=== PATIENT | male | born 1985 | race Caucasian/White ===

== ENCOUNTER 2016-12-28 20:55 | Emergency (ER) | payer OTHER ==
[~2016-12-28] VITALS: Ht 190.5 cm; Wt 132.2 kg
[~2016-12-28 20:55] MED LIST changes: -PERCOCET 10/1 TABLET PO; -XARELTO15 MG PO
[2016-12-28 22:28] LABS: HEMATOCRIT 42.9 % (38.0-50.0); MCH 27.3 PG (29.0-34.0); MCHC 34.5 G/DL (30.0-36.0); MEAN PLAT.VOLUME 10.2 uM^3 (9.0-12.4); PLATELET COUNT 139 K/uL (156-360); RBC DIS.WIDTH-CV 15.3 % (11.8-14.6); RBC DIS.WIDTH-SD 43.3 % (39-53); RED BLOOD COUNT 5.43 M/uL (4.00-5.50); WHITE BLOOD COUNT 9.1 K/uL (4.1-10.2)
[2016-12-28 22:39] LABS: PROTHROMBIN TIME 10.4 (9.2-11.2); PTT 28.1 (25-32)
[2016-12-28 22:41] LABS: CHLORIDE 103 mEq/L (99-109); POTASSIUM 3.7 mEq/L (3.7-5.4); SODIUM 139 mEq/L (136-147)
[2016-12-28 22:44] LABS: ANION GAP 12 MEQ/L (2-14)
[2016-12-28 22:46] LABS: GFR ESTIMATE (CALCULATED) > 59 mL/min/
[2016-12-28 22:47] LABS: UREA NITROGEN (BUN) 8 mg/dL (9-23)
[2016-12-28 22:48] LABS: GLUCOSE 404 mg/dL (70-99)
[2016-12-28] MEDS ORDERED: XARELTO15 MG PO (23:18)
[2016-12-28] MEDS ORDERED: PERCOCET 5/31 TABLET PO (23:18)
[2016-12-28 23:43] VITALS: BP 122/85
== END 2016-12-28 23:46 | disposition home or self-care (01) ==
LOC: EME 20:55
PROVIDERS: Emergency Medicine
DX: I82.402 Acute embolism and thrombosis of unspecified deep veins of left lower extremity (principal); E11.9 Type 2 diabetes mellitus without complications; F17.200 Nicotine dependence, unspecified, uncomplicated; Z79.84 Long term (current) use of oral hypoglycemic drugs
CPT/HCPCS: 80048; 85027; 85610; 85730; 93005; 99281; 99285

== ENCOUNTER → 2016-12-28 | Outpatient (CLI) | payer OTHER ==
[~2016-12-28] MED LIST: ACETAMINOPHEN-1 EAC1 PO; FLEXERIL10 MG PO; FLEXERIL5 MG PO; IMODIUM A-1 MG/7.5 M PO; JANUMET XR 1001 EACH PO; LYRICA150 MG PO; METFORMIN HCL1000 MG PO; MOBIC7.5 MG PO; MOTRIN800 MG PO; NAPROSYN500 MG PO; PERCOCET 10/1 TABLET PO; PERCOCET 5/31 TABLET PO; TRULICITY0.75 MG/0. SC; XARELTO15 MG PO; ZOFRAN4 MG PO
== END | disposition home or self-care (01) ==
LOC: RAD 19:45
DX: I82.412 Acute embolism and thrombosis of left femoral vein (principal); I82.432 Acute embolism and thrombosis of left popliteal vein; I82.442 Acute embolism and thrombosis of left tibial vein; I82.4Y2 Acute embolism and thrombosis of unspecified deep veins of left proximal lower extremity
CPT/HCPCS: 93971

== ENCOUNTER 2017-01-01 20:43 | Emergency (ER) | payer OTHER ==
[~2017-01-01] VITALS: Ht 190.5 cm; Wt 128.1 kg
[~2017-01-01 20:43] MED LIST changes: +XARELTO15 MG PO
[2017-01-01 23:58] LABS: POINT-OF-CARE METER ID UU13113800
[2017-01-02] MEDS ORDERED: PERCOCET 10/1 TABLET PO (01:16)
[2017-01-02 01:32] VITALS: BP 111/57
== END 2017-01-02 01:37 | disposition home or self-care (01) ==
LOC: EME 20:43 → RME 20:43
PROVIDERS: Physician Assistant Medical
DX: I82.412 Acute embolism and thrombosis of left femoral vein (principal); Z98.890 Other specified postprocedural states; E11.9 Type 2 diabetes mellitus without complications; Z79.84 Long term (current) use of oral hypoglycemic drugs; F17.200 Nicotine dependence, unspecified, uncomplicated
CPT/HCPCS: 82948; 93971; 99281; 99284

== ENCOUNTER 2017-01-08 04:10 | Inpatient (IN) | payer OTHER ==
[~2017-01-08] VITALS: Ht 190.5 cm; Wt 128.2 kg
[~2017-01-08 04:10] MED LIST changes: +PERCOCET 10/1 TABLET PO
[2017-01-08 05:32] LABS: CHLORIDE 108 mEq/L (99-109); POTASSIUM 3.7 mEq/L (3.7-5.4); SODIUM 141 mEq/L (136-147)
[2017-01-08 05:34] LABS: GLUCOSE 154 mg/dL (70-99)
[2017-01-08 05:35] LABS: ANION GAP 12 MEQ/L (2-14)
[2017-01-08 05:38] LABS: GFR ESTIMATE (CALCULATED) > 59 mL/min/
[2017-01-08 05:39] LABS: UREA NITROGEN (BUN) 12 mg/dL (9-23)
[2017-01-08 05:44] LABS: HEMATOCRIT 41.8 % (38.0-50.0); MCH 26.6 PG (29.0-34.0); MCV 78.4 FL (86-99); MEAN PLAT.VOLUME 9.9 uM^3 (9.0-12.4); RBC DIS.WIDTH-CV 14.6 % (11.8-14.6); RBC DIS.WIDTH-SD 41.3 % (39-53); RED BLOOD COUNT 5.33 M/uL (4.00-5.50); WHITE BLOOD COUNT 9.4 K/uL (4.1-10.2)
[2017-01-08 05:45] LABS: PLATELET COUNT 222 K/uL (156-360)
[2017-01-08 06:17] LABS: INTER. NORMALIZED RATIO 1.4; PROTHROMBIN TIME 15.8 SEC (10.2-12.9)
[2017-01-08 06:23] LABS: PTT 43.1 SEC (25-37)
[2017-01-08 11:11] LABS: POINT-OF-CARE METER ID UU14100415
[2017-01-08 15:01] VITALS: BP 121/66
[2017-01-08 16:54] LABS: POINT-OF-CARE METER ID UU14188625
[2017-01-08 19:42] VITALS: BP 124/58
[2017-01-08 21:39] LABS: INTERNAL CONTROL VALID? YES
[2017-01-08 21:42] LABS: POINT-OF-CARE METER ID UU13113717
[2017-01-08 23:39] VITALS: BP 134/63
[2017-01-09 04:04] VITALS: BP 127/57
[2017-01-09 04:15] LABS: HEMATOCRIT 39.7 % (38.0-50.0); MCH 26.4 PG (29.0-34.0); MCHC 33.5 G/DL (30.0-36.0); MCV 78.8 FL (86-99); MEAN PLAT.VOLUME 9.8 uM^3 (9.0-12.4); PLATELET COUNT 192 K/uL (156-360); RBC DIS.WIDTH-CV 14.4 % (11.8-14.6); RBC DIS.WIDTH-SD 41.1 % (39-53); RED BLOOD COUNT 5.04 M/uL (4.00-5.50); WHITE BLOOD COUNT 5.5 K/uL (4.1-10.2)
[2017-01-09 07:12] VITALS: BP 117/60
[2017-01-09 07:29] LABS: POINT-OF-CARE METER ID UU14188625
[2017-01-09 11:14] VITALS: BP 128/65
[2017-01-09 15:07] VITALS: BP 115/64
[2017-01-09] MEDS ORDERED: LOVENOX150 MG/1 M SC (15:50)
[2017-01-09] MEDS ORDERED: PERCOCET 5/31 TABLET PO ×2 (15:50→15:53)
[2017-01-09] MEDS ORDERED: NICOTINE PATCH1 EAC2 TD (15:52)
[2017-01-09] MEDS ORDERED: TYLENOL REGULA325 MG PO (15:52)
[2017-01-09 16:43] LABS: POINT-OF-CARE METER ID UU14188625
[2017-01-09 22:04] LABS: ADD dRVVT REFLEX? Y; DRVVT Mixing Study Interp Not Indicated (()); dRVVT Screen 49 sec (<=45)
[2017-01-09 22:16] LABS: LUPA PHOSPHOLIPID NEUTRALIZ Negative (Negative)
[2017-01-09 22:34] LABS: ADD PTT REFLEX? Y; PTT-LA >200 sec (<=40)
[2017-01-10 15:57] LABS: Protein S, Free 103 % normal (57-171)
[2017-01-11 15:02] LABS: ANTITHROMBIN III ACTIVITY+ 98 % activi (80-120); DRVVT Mixing Study Interp Not Indicated (()); PROTEIN C FUNCTIONAL ACTIVITY+ 168 % (70-180); Thrombosis Consult Level Limited (()); dRVVT Screen 49 sec (<=45)
[2017-01-14 08:24] LABS: THROMBIN TIME+ >100 sec (13-19)
== END 2017-01-09 17:10 | disposition home or self-care (01) | DRG 301 ==
LOC: EME 04:10 → EDOF 07:57 → 5SOUTH 07:57 → ENRESERV 08:06 → 5SOUTH 14:52
PROVIDERS: Emergency Medicine; Internal Medicine
DX: I82.412 Acute embolism and thrombosis of left femoral vein (principal); G62.9 Polyneuropathy, unspecified; E11.9 Type 2 diabetes mellitus without complications; F17.210 Nicotine dependence, cigarettes, uncomplicated; I87.2 Venous insufficiency (chronic) (peripheral); K59.00 Constipation, unspecified; Z68.35 Body mass index [BMI] 35.0-35.9, adult; Z79.01 Long term (current) use of anticoagulants; Z79.84 Long term (current) use of oral hypoglycemic drugs; E66.9 Obesity, unspecified; M54.5 Low back pain; R16.1 Splenomegaly, not elsewhere classified; R26.2 Difficulty in walking, not elsewhere classified; R61 Generalized hyperhidrosis; R63.4 Abnormal weight loss
CPT/HCPCS: 74177; 80048; 81240 90; 81241 90; 82272; 82948; 83090 90; 85027; 85240 90; 85300 90; 85303 90; 85305 90; 85306 90; 85307 90; 85384; 85597 90; 85610; 85613 90; 85670 90; 85730; 85730 90; 86038; 86140; 86146 90; 86147 90; 93971; 99281; 99285; J1650; J1815; J7030

== ENCOUNTER 2017-01-17 16:11 | Emergency (ER) | payer OTHER ==
[~2017-01-17] VITALS: Ht 190.5 cm; Wt 132.2 kg
[~2017-01-17 16:11] MED LIST changes: +LOVENOX150 MG/1 M SC; +NICOTINE PATCH1 EAC2 TD; +TYLENOL REGULA325 MG PO
[2017-01-17] MEDS ORDERED: PERCOCET 10/1 TABLET PO (17:57)
[2017-01-17 18:15] VITALS: BP 128/85
[2017-01-17] MEDS ORDERED: FLEXERIL10 MG PO (18:22)
== END 2017-01-17 18:33 | disposition home or self-care (01) ==
LOC: EME 16:11 → RME 16:11
DX: I82.512 Chronic embolism and thrombosis of left femoral vein (principal); I87.2 Venous insufficiency (chronic) (peripheral); G62.9 Polyneuropathy, unspecified; F17.200 Nicotine dependence, unspecified, uncomplicated; Z79.01 Long term (current) use of anticoagulants; Z91.19 Patient's noncompliance with other medical treatment and regimen
CPT/HCPCS: 99281; 99283

== ENCOUNTER 2017-01-21 12:55 | Inpatient (IN) | payer OTHER ==
[~2017-01-21] VITALS: Ht 190.5 cm; Wt 134.8 kg
[2017-01-21 13:57] LABS: HEMATOCRIT 46.3 % (38.0-50.0); MCH 26.2 PG (29.0-34.0); MCHC 32.8 G/DL (30.0-36.0); MCV 79.7 FL (86-99); MEAN PLAT.VOLUME 9.8 uM^3 (9.0-12.4); PLATELET COUNT 188 K/uL (156-360); RBC DIS.WIDTH-SD 42.9 % (39-53); RED BLOOD COUNT 5.81 M/uL (4.00-5.50); WHITE BLOOD COUNT 7.2 K/uL (4.1-10.2)
[2017-01-21 14:05] LABS: CHLORIDE 107 mEq/L (99-109); POTASSIUM 4.2 mEq/L (3.7-5.4); SODIUM 141 mEq/L (136-147)
[2017-01-21 14:06] LABS: GLUCOSE 128 mg/dL (70-99)
[2017-01-21 14:10] LABS: GFR ESTIMATE (CALCULATED) > 59 mL/min/
[2017-01-21 14:17] LABS: TROP-I INTERPRETATION NEGATIVE; TROPONIN-I < 0.01 ng/mL (0.0-0.30)
[2017-01-21 14:19] LABS: PROTHROMBIN TIME 10.8 SEC (10.2-12.9)
[2017-01-21 15:38] LABS: UREA NITROGEN (BUN) 11 mg/dL (9-23)
[2017-01-21 15:39] LABS: ANION GAP 9 MEQ/L (2-14)
[2017-01-21 17:10] LABS: PTT 47.4 SEC (25-37)
[2017-01-21] MEDS ORDERED: ENOXAPARIN120 MG/0.8 SC (18:12)
[2017-01-21 21:20] VITALS: BP 115/54
[2017-01-21 21:58] VITALS: BP 115/54
[2017-01-21 23:09] VITALS: BP 139/65
[2017-01-22] VITALS (8 sets, daily range): BP systolic 99–134; BP diastolic 57–73
[2017-01-22 08:47] LABS: HEMATOCRIT 40.4 % (38.0-50.0); MCHC 33.7 G/DL (30.0-36.0); MCV 80.2 FL (86-99); MEAN PLAT.VOLUME 10.1 uM^3 (9.0-12.4); PLATELET COUNT 135 K/uL (156-360); RBC DIS.WIDTH-CV 14.9 % (11.8-14.6); RED BLOOD COUNT 5.04 M/uL (4.00-5.50); WHITE BLOOD COUNT 5.4 K/uL (4.1-10.2)
[2017-01-22 09:31] LABS: ALKALINE PHOSPHATASE 46 IU/L (3-129); ANION GAP 7 MEQ/L (2-14); CHLORIDE 108 MEQ/L (99-109); GFR ESTIMATE (CALCULATED) > 59 mL/min/; POTASSIUM 3.7 MEQ/L (3.7-5.4); SAMPLE HEMOLYSIS CHECK 0; SAMPLE ICTERIC CHECK 0; SAMPLE LIPEMIA CHECK 0; SODIUM 143 MEQ/L (136-147); UREA NITROGEN (BUN) 9 mg/dL (9-23)
[2017-01-22 09:33] LABS: GLUCOSE 211 mg/dL (70-99); TOTAL BILIRUBIN 0.7 MG/DL (0.0-1.0)
[2017-01-23 03:47] VITALS: BP 113/57
[2017-01-23 04:27] LABS: HEMATOCRIT 38.9 % (38.0-50.0); MCH 26.4 PG (29.0-34.0); MCHC 33.2 G/DL (30.0-36.0); MCV 79.6 FL (86-99); MEAN PLAT.VOLUME 10.2 uM^3 (9.0-12.4); PLATELET COUNT 144 K/uL (156-360); RBC DIS.WIDTH-CV 14.8 % (11.8-14.6); RBC DIS.WIDTH-SD 42.5 % (39-53); RED BLOOD COUNT 4.89 M/uL (4.00-5.50); WHITE BLOOD COUNT 6.7 K/uL (4.1-10.2)
[2017-01-23 04:35] LABS: PTT 57.2 SEC (25-37)
[2017-01-23 07:37] VITALS: BP 115/63
[2017-01-23 08:47] LABS: PROTHROMBIN TIME 10.7 SEC (10.2-12.9)
[2017-01-23 12:50] VITALS: BP 120/58
[2017-01-23] MEDS ORDERED: COUMADIN5 MG PO (13:48)
[2017-01-23] MEDS ORDERED: OXYCODONE HCL5 MG PO (13:48)
[2017-01-23] MEDS ORDERED: LOVENOX150 MG/1 M SC (13:48)
== END 2017-01-23 15:00 | disposition home or self-care (01) | DRG 299 ==
LOC: RME 12:55 → EME 12:55 → EDOF 18:07 → 3EAST 18:07 → ENRESERV 18:09 → 3EAST 20:56
PROVIDERS: Hospitalist; Internal Medicine
DX: I82.412 Acute embolism and thrombosis of left femoral vein (principal); I26.99 Other pulmonary embolism without acute cor pulmonale; R16.1 Splenomegaly, not elsewhere classified; D68.61 Antiphospholipid syndrome; D68.62 Lupus anticoagulant syndrome; E11.9 Type 2 diabetes mellitus without complications; E66.9 Obesity, unspecified; I87.2 Venous insufficiency (chronic) (peripheral); Z79.01 Long term (current) use of anticoagulants; Z83.3 Family history of diabetes mellitus; F17.210 Nicotine dependence, cigarettes, uncomplicated; M25.512 Pain in left shoulder; R07.9 Chest pain, unspecified; R63.4 Abnormal weight loss; Z86.711 Personal history of pulmonary embolism; Z86.718 Personal history of other venous thrombosis and embolism
CPT/HCPCS: 71020; 71275; 80048; 80053; 84484; 85027; 85610; 85730; 93005; 93971; 99202; 99281; 99285; J1650; J2270; J7030

== ENCOUNTER 2017-01-28 15:18 | Emergency (ER) | payer OTHER ==
[~2017-01-28] VITALS: Ht 190.5 cm; Wt 136.2 kg
[~2017-01-28 15:18] MED LIST changes: +COUMADIN5 MG PO; +ENOXAPARIN120 MG/0.8 SC; +OXYCODONE HCL5 MG PO
[2017-01-28 17:02] LABS: ADD MIUA? YES; BILIRUBIN NEGATIVE; BLOOD NEGATIVE; COLOR YELLOW ((YELLOW)); GLUCOSE (STRIP) >=500; KETONES NEGATIVE; LEUKOCYTES NEGATIVE; NITRITE NEGATIVE; PROTEIN (STRIP) 30; SPECIFIC GRAVITY 1.024 (1.000-1.030); UROBILINOGEN 0.2 MG/DL (0.2-1.0)
[2017-01-28 17:08] LABS: BACTERIA RARE /HPF; EPITHELIAL CELLS RARE /HPF; MUCUS 1+ /LPF; RED BLOOD CELLS 0-5 /HPF (0-5); WHITE BLOOD CELLS 0-5 /HPF (0-5)
[2017-01-28] MEDS ORDERED: PERCOCET 5/31 TABLET PO (19:21)
[2017-01-28 20:15] VITALS: BP 131/82
== END 2017-01-28 20:17 | disposition home or self-care (01) ==
LOC: EME 15:18
PROVIDERS: Physician Assistant
DX: M54.6 Pain in thoracic spine (principal); I82.402 Acute embolism and thrombosis of unspecified deep veins of left lower extremity; E11.40 Type 2 diabetes mellitus with diabetic neuropathy, unspecified; Z86.718 Personal history of other venous thrombosis and embolism; Z86.711 Personal history of pulmonary embolism; Z87.891 Personal history of nicotine dependence
CPT/HCPCS: 81003; 93971; 99281; 99285

== ENCOUNTER 2017-02-16 17:40 | Emergency (ER) | payer OTHER ==
[~2017-02-16] VITALS: Ht 190.5 cm; Wt 139.2 kg
[2017-02-16 18:58] LABS: HEMATOCRIT 46.1 % (38.0-50.0); MCH 25.9 PG (29.0-34.0); MCV 78.4 FL (86-99); MEAN PLAT.VOLUME 9.6 uM^3 (9.0-12.4); PLATELET COUNT 179 K/uL (156-360); RBC DIS.WIDTH-CV 15.4 % (11.8-14.6); RBC DIS.WIDTH-SD 42.9 % (39-53); RED BLOOD COUNT 5.88 M/uL (4.00-5.50); WHITE BLOOD COUNT 9.6 K/uL (4.1-10.2)
[2017-02-16 19:00] LABS: INTER. NORMALIZED RATIO 3.2; PROTHROMBIN TIME 36.6 SEC (10.2-12.9)
[2017-02-16 19:03] LABS: CHLORIDE 103 mEq/L (99-109); POTASSIUM 4.2 mEq/L (3.7-5.4); SODIUM 140 mEq/L (136-147)
[2017-02-16 19:05] LABS: GLUCOSE 234 mg/dL (70-99)
[2017-02-16 19:06] LABS: ANION GAP 12 MEQ/L (2-14)
[2017-02-16 19:08] LABS: GFR ESTIMATE (CALCULATED) > 59 mL/min/
[2017-02-16 19:09] LABS: UREA NITROGEN (BUN) 14 mg/dL (9-23)
[2017-02-16 19:11] LABS: CREATINE KINASE 84 IU/L (1-294)
[2017-02-16 20:18] VITALS: BP 119/71
== END 2017-02-16 20:19 | disposition home or self-care (01) ==
LOC: EME 17:40
PROVIDERS: Physician Assistant
DX: I80.02 Phlebitis and thrombophlebitis of superficial vessels of left lower extremity (principal); R73.9 Hyperglycemia, unspecified; I87.2 Venous insufficiency (chronic) (peripheral); S86.912A Strain of unspecified muscle(s) and tendon(s) at lower leg level, left leg, initial encounter; S86.911A Strain of unspecified muscle(s) and tendon(s) at lower leg level, right leg, initial encounter; R60.0 Localized edema; Z86.718 Personal history of other venous thrombosis and embolism; Z91.19 Patient's noncompliance with other medical treatment and regimen; Z79.01 Long term (current) use of anticoagulants; X58.XXXA Exposure to other specified factors, initial encounter; Z87.891 Personal history of nicotine dependence; Z88.6 Allergy status to analgesic agent
CPT/HCPCS: 80048; 82550; 85027; 85610; 93970; 99281; 99284

== ENCOUNTER → 2017-03-07 | Outpatient (CLI) | payer OTHER ==
[~2017-03-07] VITALS: Ht 191.8 cm; Wt 138.3 kg
[~2017-03-07] MED LIST changes: +GLIPIZIDE5 MG PO; +LOVENOX100 MG/1 M SC; +METFORMIN HCL500 M4 PO; +PROTONIX40 MG PO
[2017-03-07 08:19] LABS: POINT-OF-CARE METER ID UU14174212
[2017-03-07 08:26] LABS: BASOPHIL COUNT 0.1 K/uL (0-0.1); EOSINOPHIL COUNT 0.2 K/uL (0-0.3); HEMATOCRIT 46.2 % (38.0-50.0); IMMATURE GRANULOCYTE (%) 0.3 % (0.0-0.7); INSTRUMENT ABS NEUTROPHIL CT 3.6 K/uL; LYMPHOCYTE COUNT 2.2 K/uL (1.0-2.8); MCH 26.6 PG (29.0-34.0); MCV 78.3 FL (86-99); MEAN PLAT.VOLUME 9.6 uM^3 (9.0-12.4); MONOCYTE (%) 7.7 % (3-12); MONOCYTE COUNT 0.5 K/uL (0-0.8); NEUTROPHIL (%) 54.4 % (45-76); NEUTROPHIL COUNT 3.6 K/uL (1.8-6.4); PLATELET COUNT 132 K/uL (156-360); RBC DIS.WIDTH-CV 15.5 % (11.8-14.6); WHITE BLOOD COUNT 6.6 K/uL (4.1-10.2)
[2017-03-07 08:42] LABS: PROTHROMBIN TIME 10.8 SEC (10.2-12.9)
[2017-03-07 08:45] LABS: PTT 31.4 SEC (25-37)
[2017-03-07 08:49] LABS: POINT-OF-CARE METER ID UU14174212
[2017-03-09 18:19] LABS: NUMBER OF MARKERS 22; SPECIMEN VIABILITY 98
== END | disposition home or self-care (01) ==
LOC: OPR 07:35 → EDSTATUS 08:00 → OPR 08:00
PROVIDERS: Internal Medicine Medical Oncology
PROC: 07DR3ZX Extraction of Iliac Bone Marrow, Percutaneous Approach, Diagnostic (ICD-10-PCS; principal; 2017-03-07)
PROC: 079T3ZX Drainage of Bone Marrow, Percutaneous Approach, Diagnostic (ICD-10-PCS; principal; 2017-03-07)
DX: R16.1 Splenomegaly, not elsewhere classified (principal); I82.412 Acute embolism and thrombosis of left femoral vein; F11.10 Opioid abuse, uncomplicated; E11.65 Type 2 diabetes mellitus with hyperglycemia; E11.44 Type 2 diabetes mellitus with diabetic amyotrophy; J45.40 Moderate persistent asthma, uncomplicated; K21.9 Gastro-esophageal reflux disease without esophagitis; E78.5 Hyperlipidemia, unspecified; D69.6 Thrombocytopenia, unspecified; F17.200 Nicotine dependence, unspecified, uncomplicated; G89.29 Other chronic pain; Z80.1 Family history of malignant neoplasm of trachea, bronchus and lung; Z80.3 Family history of malignant neoplasm of breast; Z79.84 Long term (current) use of oral hypoglycemic drugs; Q99.9 Chromosomal abnormality, unspecified; Z88.5 Allergy status to narcotic agent; Z88.6 Allergy status to analgesic agent
CPT/HCPCS: 77012; 82948; 85025; 85610; 85730; J3010

== ENCOUNTER 2017-09-16 21:18 | Emergency (ER) | payer OTHER ==
[~2017-09-16] VITALS: Ht 190.5 cm; Wt 133.9 kg
[2017-09-16 22:51] LABS: CHLORIDE 101 mEq/L (99-109); SODIUM 137 mEq/L (136-147)
[2017-09-16 22:53] LABS: GLUCOSE 487 mg/dL (70-99)
[2017-09-16 22:57] LABS: CREATININE 1.1 mg/dL (0.6-1.3); GFR ESTIMATE (CALCULATED) > 59 mL/min/ (58.99-99999)
[2017-09-16 22:58] LABS: UREA NITROGEN (BUN) 13 mg/dL (9-23)
[2017-09-16] MEDS ORDERED: PERCOCET 5/31 TABLET PO (23:28)
[2017-09-16 23:40] VITALS: BP 129/87
[2017-09-16 23:42] LABS: HEMATOCRIT 48.3 % (38.0-50.0); HEMOGLOBIN 17.5 G/DL (12.5-16.6); MCH 28.3 PG (29.0-34.0); MCHC 36.2 G/DL (30.0-36.0); MCV 78.2 FL (86-99); PLATELET COUNT 157 K/uL (156-360); RBC DIS.WIDTH-CV 14.9 % (11.8-14.6); RBC DIS.WIDTH-SD 41.1 % (39-53); RED BLOOD COUNT 6.18 M/uL (4.00-5.50); WHITE BLOOD COUNT 8.4 K/uL (4.1-10.2)
== END 2017-09-16 23:41 | disposition left against medical advice (07) ==
LOC: EME 21:18
PROVIDERS: Physician Assistant
DX: E11.65 Type 2 diabetes mellitus with hyperglycemia (principal); S60.221A Contusion of right hand, initial encounter; W23.0XXA Caught, crushed, jammed, or pinched between moving objects, initial encounter; Y93.E6 Activity, residential relocation; I82.502 Chronic embolism and thrombosis of unspecified deep veins of left lower extremity; Z79.01 Long term (current) use of anticoagulants; Z79.84 Long term (current) use of oral hypoglycemic drugs; Z91.14 Patient's other noncompliance with medication regimen; Z53.20 Procedure and treatment not carried out because of patient's decision for unspecified reasons; J45.909 Unspecified asthma, uncomplicated; Z98.52 Vasectomy status; Z88.6 Allergy status to analgesic agent; Z88.5 Allergy status to narcotic agent; F17.200 Nicotine dependence, unspecified, uncomplicated; Z86.718 Personal history of other venous thrombosis and embolism
CPT/HCPCS: 73130; 80048; 85027; 85610; 93971; 99281; 99284

== ENCOUNTER 2017-12-05 17:10 | Inpatient (IN) | payer OTHER ==
[~2017-12-05] VITALS: Ht 190.5 cm; Wt 135.7 kg
[~2017-12-05 17:10] MED LIST changes: +GLUCOPHAGE XR,500 MG PO; -METFORMIN HCL500 M4 PO
[2017-12-05 18:42] LABS: MCH 27.6 PG (29.0-34.0); MCHC 35.4 G/DL (30.0-36.0); PLATELET COUNT 145 K/uL (156-360); RBC DIS.WIDTH-CV 15.9 % (11.8-14.6); RED BLOOD COUNT 6.15 M/uL (4.00-5.50); WHITE BLOOD COUNT 9.4 K/uL (4.1-10.2)
[2017-12-05 18:47] LABS: PTT 73.5 SEC (25-37)
[2017-12-05 18:51] LABS: ALBUMIN 4.2 g/dL (3.2-4.8); CHLORIDE 103 mEq/L (99-109); POTASSIUM 4.1 mEq/L (3.7-5.4); SODIUM 139 mEq/L (136-147)
[2017-12-05 18:53] LABS: GLUCOSE 338 mg/dL (70-99); TOTAL PROTEIN 6.7 g/dL (6.4-8.3)
[2017-12-05 18:55] LABS: TOTAL BILIRUBIN 1.3 mg/dL (0.0-1.0)
[2017-12-05 18:57] LABS: ALKALINE PHOSPHATASE 72 IU/L (3-129); CREATININE 1.1 mg/dL (0.6-1.3); GFR ESTIMATE (CALCULATED) > 59 mL/min/ (58.99-99999)
[2017-12-05 18:58] LABS: UREA NITROGEN (BUN) 10 mg/dL (9-23)
[2017-12-05 18:59] LABS: AST (GOT) 17 IU/L (2-34)
[2017-12-05 19:00] LABS: ALT (GPT) 35 IU/L (3-49)
[2017-12-05] MEDS ORDERED: COUMADIN1 MG PO (20:00)
[2017-12-05] MEDS ORDERED: ELAVIL10 MG PO (20:01)
[2017-12-05] MEDS ORDERED: ZANTAC150 MG PO (20:01)
[2017-12-05] MEDS ORDERED: CLARITIN10 M3 PO (20:01)
[2017-12-05] MEDS ORDERED: PRAVACHOL40 MG PO (20:01)
[2017-12-05 21:56] VITALS: BP 131/83
[2017-12-05 23:56] VITALS: BP 120/75
[2017-12-06 03:03] LABS: HEMATOCRIT 45.9 % (38.0-50.0); HEMOGLOBIN 16.2 G/DL (12.5-16.6); MCH 27.5 PG (29.0-34.0); MCHC 35.3 G/DL (30.0-36.0); MCV 77.9 FL (86-99); PLATELET COUNT 130 K/uL (156-360); RBC DIS.WIDTH-CV 15.4 % (11.8-14.6); RBC DIS.WIDTH-SD 43.2 % (39-53); RED BLOOD COUNT 5.89 M/uL (4.00-5.50); WHITE BLOOD COUNT 8.1 K/uL (4.1-10.2)
[2017-12-06 03:11] LABS: PTT 92.3 SEC (25-37)
[2017-12-06 03:30] VITALS: BP 122/62
[2017-12-06 05:06] LABS: ALBUMIN 3.8 g/dL (3.2-4.8); CHLORIDE 104 mEq/L (99-109); POTASSIUM 3.5 mEq/L (3.7-5.4); SODIUM 139 mEq/L (136-147)
[2017-12-06 05:08] LABS: GLUCOSE 326 mg/dL (70-99)
[2017-12-06 05:09] LABS: TOTAL PROTEIN 5.7 g/dL (6.4-8.3)
[2017-12-06 05:10] LABS: TOTAL BILIRUBIN 1.1 mg/dL (0.0-1.0)
[2017-12-06 05:12] LABS: ALKALINE PHOSPHATASE 67 IU/L (3-129); GFR ESTIMATE (CALCULATED) > 59 mL/min/ (58.99-99999)
[2017-12-06 05:13] LABS: UREA NITROGEN (BUN) 12 mg/dL (9-23)
[2017-12-06 05:14] LABS: AST (GOT) 16 IU/L (2-34)
[2017-12-06 05:15] LABS: ALT (GPT) 32 IU/L (3-49)
[2017-12-06 06:19] LABS: INTER. NORMALIZED RATIO 4.1
[2017-12-06 07:50] VITALS: BP 110/55
[2017-12-06 12:00] VITALS: BP 134/83
[2017-12-06 14:05] LABS: HEMOGLOBIN A1c (GLYCOHEMOGLOB) 10.9 % (Below 5.7)
[2017-12-06 16:02] VITALS: BP 130/80
[2017-12-06 16:02] LABS: PTT 61.4 SEC (25-37)
[2017-12-06 16:24] LABS: INTER. NORMALIZED RATIO 2.6
[2017-12-06 20:09] VITALS: BP 117/69
[2017-12-06 21:26] LABS: C DIFF TOXIN NEGATIVE (NEGATIVE)
[2017-12-07] VITALS: BP 136/87
[2017-12-07 05:55] LABS: INTER. NORMALIZED RATIO 1.8
[2017-12-07 05:58] LABS: PTT 47.5 SEC (25-37)
[2017-12-07 07:18] VITALS: BP 107/65
[2017-12-07] MEDS ORDERED: NOVOLIN N100 UNITS/ SC (13:13)
[2017-12-07] MEDS ORDERED: LOVENOX120 MG/0.8 SC (13:24)
[2017-12-07] MEDS ORDERED: OXYCODONE HCL5 MG PO (15:07)
== END 2017-12-07 15:24 | disposition home or self-care (01) | DRG 301 ==
LOC: EME 17:10 → EDOF 20:11 → 5SOUTH 20:11 → ENRESERV 20:16 → 5SOUTH 21:20
PROVIDERS: Internal Medicine; Nurse Practitioner Adult Health; Nurse Practitioner Family
DX: I82.412 Acute embolism and thrombosis of left femoral vein (principal); I82.432 Acute embolism and thrombosis of left popliteal vein; I82.512 Chronic embolism and thrombosis of left femoral vein; E11.65 Type 2 diabetes mellitus with hyperglycemia; E11.40 Type 2 diabetes mellitus with diabetic neuropathy, unspecified; J45.909 Unspecified asthma, uncomplicated; F17.200 Nicotine dependence, unspecified, uncomplicated; E66.9 Obesity, unspecified; Z68.37 Body mass index [BMI] 37.0-37.9, adult; Z91.19 Patient's noncompliance with other medical treatment and regimen; Z86.711 Personal history of pulmonary embolism; Z79.01 Long term (current) use of anticoagulants; Z79.84 Long term (current) use of oral hypoglycemic drugs
CPT/HCPCS: 80053; 82948; 83036; 85027; 85610; 85730; 87493; 93971; 99281; 99285; J1650; J1815

== ENCOUNTER 2017-12-13 12:49 | Emergency (ER) | payer OTHER ==
[~2017-12-13] VITALS: Ht 190.5 cm; Wt 138.8 kg
[~2017-12-13 12:49] MED LIST changes: +CLARITIN10 M3 PO; +COUMADIN1 MG PO; +ELAVIL10 MG PO; +LOVENOX120 MG/0.8 SC; +NOVOLIN N100 UNITS/ SC; +PRAVACHOL40 MG PO; +ZANTAC150 MG PO
[2017-12-13 14:35] LABS: HEMATOCRIT 47.3 % (38.0-50.0); HEMOGLOBIN 16.6 G/DL (12.5-16.6); MCH 27.4 PG (29.0-34.0); MCHC 35.1 G/DL (30.0-36.0); MCV 78.2 FL (86-99); PLATELET COUNT 146 K/uL (156-360); RBC DIS.WIDTH-CV 15.4 % (11.8-14.6); RBC DIS.WIDTH-SD 42.9 % (39-53); RED BLOOD COUNT 6.05 M/uL (4.00-5.50); WHITE BLOOD COUNT 7.9 K/uL (4.1-10.2)
[2017-12-13 14:43] LABS: INTER. NORMALIZED RATIO 1.9
[2017-12-13 14:46] LABS: CHLORIDE 103 mEq/L (99-109); POTASSIUM 3.8 mEq/L (3.7-5.4); PTT 50.6 SEC (25-37); SODIUM 136 mEq/L (136-147)
[2017-12-13 14:48] LABS: GLUCOSE 196 mg/dL (70-99)
[2017-12-13 14:51] LABS: CREATININE 0.9 mg/dL (0.6-1.3); GFR ESTIMATE (CALCULATED) > 59 mL/min/ (58.99-99999)
[2017-12-13 14:52] LABS: UREA NITROGEN (BUN) 15 mg/dL (9-23)
[2017-12-13 15:43] VITALS: BP 126/81
== END 2017-12-13 15:44 | disposition home or self-care (01) ==
LOC: EME 12:49
PROVIDERS: Physician Assistant
DX: I82.512 Chronic embolism and thrombosis of left femoral vein (principal); I82.592 Chronic embolism and thrombosis of other specified deep vein of left lower extremity; Z79.01 Long term (current) use of anticoagulants; E11.9 Type 2 diabetes mellitus without complications; Z79.84 Long term (current) use of oral hypoglycemic drugs; F17.200 Nicotine dependence, unspecified, uncomplicated
CPT/HCPCS: 80048; 85027; 85610; 85730; 93971; 99281; 99283